=== PATIENT | female | born 1990 | race Caucasian/White ===

== ENCOUNTER 2025-02-18 22:18 | Emergency (ER) | payer OTHER, SELFPAY ==
[2025-02-18 22:23] VITALS: BP 144/106
--- NOTE | 2025-02-18 23:15 | ED.GENMED ---
History of Present Illness
General
Chief Complaint: Dental Problem
Source: patient
Exam Limitations: none
Time Seen by Provider: 02/18/25 22:29
Nursing documentation reviewed up to this point in time: agreed with
History of Present Illness
History of Present Illness:
Note:
CHIEF COMPLAINT(S)
Pain in the mouth, particularly on the roof, described as severe upon touch.
HISTORY OF PRESENT ILLNESS
The patient is a 34-year-old female who presents with severe pain in the roof of her mouth, which is described as extremely painful upon contact. She has a history of frequent infections, but notes that this current episode feels unlike previous
ones. The pain is described as so severe that it affects her ability to think. The patient has had many infections in the past, but indicates this experience is new in its intensity and character. She reports a dry spot in her mouth that she
describes as particularly painful. The patient mentions that the symptoms are impacting her daily functioning.
ALLERGIES
The patient reports an allergy to amoxicillin. She cannot recall the exact nature of the reaction due to the time elapsed since the last exposure but states that her mother always ensured she avoided it.
MEDICATIONS
The patient reports recently being on clindamycin for infection treatment.
PHYSICAL EXAM
General: Alert, moderate acute distress. Severe pain
Skin: Warm, dry.
Head: Normocephalic, atraumatic.
Neck: Supple, trachea midline.
Eye Ears, nose, mouth and throat: Oral mucosa moist. Painful area reported by the patient in the upper portion of the mouth. Dentition is poor. Multiple fractured teeth, missing teeth and dental caries. No evidence of buccal mucosal swelling or
abscess. Uvula is midline. Tonsils are noninflamed
Cardiovascular: Normal peripheral perfusion, no edema.
Respiratory: Respirations are non-labored.
Musculoskeletal: Normal range of motion, normal strength.
Neurological: Alert and oriented to person, place, time, and situation. No focal neurological deficit observed.
Psychiatric: Cooperative, appropriate mood & affect.
PLAN
Start with an injection to alleviate the pain in the mouth to allow a better examination and understanding of the condition.
DIFFERENTIAL DIAGNOSIS
The Differential Diagnosis includes, in no particular order and is not limited to:
1. Dental caries
2. Oral ulcer
3. Herpetic stomatitis
4. Candidiasis
5. Necrotizing ulcerative gingivitis
6. Allergic reaction
7. Sinusitis with referred pain
8. Viral pharyngitis
9. Tonsillitis
10. Oral trauma
Disposition:
SUMMARY OF ENCOUNTER
The patient, a 34-year-old female, presented to the emergency department with severe pain in the roof of her mouth, particularly pronounced upon contact. The pain affected her ability to think and carry out daily functions. An in-office orbital
block was administered using bupivacaine, providing immediate pain relief. Given her allergy to amoxicillin and recent use of clindamycin, it was decided to start clindamycin again for infection treatment.
DISPOSITION
Discharge.
ASSESSMENT
The patient is experiencing severe oral pain, possibly linked to an infection or another oral condition necessitating further dental evaluation.
PLAN
The patient will continue clindamycin due to her penicillin allergy and receive a prescription for Voltaren (diclofenac) for additional pain management. She is advised to follow up with her dentist for further evaluation and management.
MEDICATION RECONCILIATION
- started on clindamycin.
- Prescription for Voltaren (diclofenac) provided.
MEDICAL DECISION MAKING
- Complexity of Data Reviewed: Chronic conditions affecting care [Frequent infections, severe current oral pain, allergy to amoxicillin]. Differential diagnosis includes dental abscess, oral ulcer, herpetic stomatitis, candidiasis, necrotizing
ulcerative gingivitis, allergic reaction, sinusitis with referred pain, viral pharyngitis, tonsillitis, and oral trauma.
DIAGNOSIS
Oral pain due to unspecified cause (ICD-10: K08.8). Possible infection or other oral condition to be further evaluated by a dentist.
Past History
Past History
ED Past Medical History: None
ED Past Surgical History: None
Social History
Tobacco: Non-smoker
Alcohol: Occasional
Drug: Narcotics and IVDA
Personal: Single
Living: with family
Phy Exam
Physical Exam
Physical Exam:
.
Course
Orders/Labs/Results
Orders:
Orders
02/18/25 22:52
Bupivacaine HCl/Epinephrine [Marcaine 0.5% W/Epi [facility] [place]] 1 cartridge .ROUTE .STK-MED ONE
Vital Signs
Initial and Last Documented VS:
Initial Vital Signs
Temp Pulse Resp BP Pulse Ox
97.8 F 81 19 144/106 99
02/18/25 22:23 02/18/25 22:23 02/18/25 22:23 02/18/25 22:23 02/18/25 22:23
Last Documented Vital Signs
Temp Pulse Resp BP Pulse Ox
97.8 F 84 20 139/80 99
02/18/25 22:23 02/18/25 23:26 02/18/25 23:26 02/18/25 23:26 02/18/25 23:26
*Pulse Oximetry
SaO2: 99
Oxygen Mode of Delivery: Room air
Patient hypoxic: no
*Critical Care Note
Total Time (30-74mins, 75-104mins- exclusive of procedures): Not Applicable
ED Attending Note
-
Portions of this chart may have been created with voice recognition software.� Occasional wrong word or��sound alike� substitutions may have occurred due to the inherent limitations of voice recognition software.
Discharge Plan
Departure
Patient Disposition: Home (Routine Discharge)
Date of Disposition: 02/18/25
Time of Disposition: 23:16
Patient with high blood pressure during this ER visit?: Yes
Condition: Good
Discharge Problem:
Pain due to dental caries, Dental decay
Instructions: Tooth Decay, Adult (DC), Fractured Tooth (DC), Dental Pain (DC), BLOOD PRESSURE
Prescriptions:
New
clindamycin HCl [Cleocin HCl] 300 mg capsule
300 mg PO Q6H 10 Days Qty: 40 0RF
diclofenac sodium 75 mg tablet,delayed release (DR/EC)
75 mg PO BID Qty: 10 0RF
No Action
methadone [Methadose] 100 MG/10 ML concentrate
240 mg PO DAILY
clindamycin HCl 300 mg capsule
300 mg PO QID Qty: 28 0RF
Referrals:
Robert Silva MD [Family Provider, Family Practice]
Activity Restrictions/Additional Instructions:
Reduced-Fee Dental Clinics
[facility]: [phone] call for appt. No walk ins
[facility]:
[facility]: [phone]
[facility] [phone]
[facility]: . No walk ins
[facility]: [phone]
[facility]: [phone]
[facility]: 1-
[facility]: [phone]
[facility] [place] [facility]: [phone]
[facility] Sliding scale, Free for uninsured
[facility]: [phone]
[facility] [phone] [place] [address]
[facility]:
[facility] [place]:
Interventions
Interventions:
*Risk Screen - Suicide Last Done: 02/18/25 22:19
*General Assessment Last Done: 02/18/25 22:19
*Neglect/Abuse Screening Last Done: 02/18/25 22:19
*ED- Fall Risk Assessment Last Done: 02/18/25 23:25
*ED COVID-19 Vaccine History Last Done: 02/18/25 23:25
*ED Influenza Vaccine History Last Done: 02/18/25 23:25
*Nursing Disposition Last Done: 02/18/25 23:26
Discharge Date and Time
Discharge Date/Time: 02/18/25 23:27
Print Language: EMIRATI
[2025-02-18 23:26] VITALS: BP 139/80
== END 2025-02-18 23:27 | disposition home or self-care (01) ==
LOC: EMR 22:18
PROVIDERS: EMERGENCY PHYSICIAN Student in an Organized Health Care Education/Training Program; FAMILY PHYSICIAN Family Medicine
DX: K02.9 Dental caries, unspecified (principal); Z88.0 Allergy status to penicillin
CPT/HCPCS: 99283